=== PATIENT | female | born 2000 | race Caucasian/White ===

== ENCOUNTER 2020-08-21 15:24 | Outpatient (CLI) | payer SELFPAY ==
[2020-08-21] VITALS (7 sets, daily range): BP systolic 137–147; BP diastolic 81–87; PULSE 94–105; BMI 27.3
[2020-08-21 17:00] LABS: Basophils % 0.2 %; Eosinophils # 0.3 10^3/uL (0.0-0.8); Hematocrit 36.1 % (37.0-47.0); Hemoglobin 12.1 g/dL (11.5-15.3); Lymphocytes # 1.8 10^3/uL (0.8-4.8); Lymphocytes % 13.3 %; Mean Corpuscular HGB Conc 33.5 g/dL (30.0-36.0); Mean Corpuscular Hemoglobin 30.8 pg (28.0-34.0); Mean Corpuscular Volume 91.9 fL (81-99); Mean Platelet Volume 10.8 fL (7.4-10.4); Monocytes % 7.5 %; Neutrophils # 10.56 10^3/uL (1.8-7.7); Neutrophils % 76.3 %; Nucleated Red Blood Cells % 0 %; Platelet Count 234 10^3/cmm (130-400); Red Blood Count 3.93 10^6/uL (4.1-5.3); Red Cell Distribution Width 12.2 % (12.1-15.1); White Blood Count 13.8 10^3/uL (4.0-10.0)
[2020-08-21 17:17] LABS: Add Urine Microscopic? YES; Bilirubin Urine Neg (Negative); Blood Urine Neg (Negative); Glucose Urine UA Norm (Normal); Ketones Urine Negative (Negative); Leukocyte Esterase Urine Negative (Negative); Nitrate Urine Negative (Negative); Protein Urine Neg (Negative); Specific Gravity, Urine 1.015 (1.005-1.030); Urine Appearance SL Hazy (CLEAR); Urine Color Yellow (Yellow); Urobilinogen Urine Norm (Negative); pH Urine 6.5 (5-7)
[2020-08-21 17:18] LABS: Alanine Aminotransferase 11 U/L (0-33); Albumin Level 3.5 g/dL (3.5-5.2); Alkaline Phosphatase 142 IU/L (35-105); Amorphous Sediment Urine 1+ /hpf; Anion Gap 14.8 (5-19); Aspartate Amino Transferase 18 U/L (0-32); Bacteria Urine TRACE /hpf; Blood Urea Nitrogen 13 mg/dL (6-20); Calcium 9.7 mg/dL (8.5-10.5); Carbon Dioxide 23 mmol/L (22-29); Chloride 104 mmol/L (98-107); Coarse Granular Casts Urine 0-4 /lpf; Globulin 2.9 g/dL (1.3-4.6); Glomerular Filtration Rate 155.7 mL/min (90-130); Glucose 76 mg/dL (65-115); Mucus Urine TRACE /hpf; Osmolality Calculated 285 mOsm/kg (285-295); Potassium 3.8 mmol/L (3.5-5.1); RBC Urine 0-4 /hpf (0-2); Sodium 138 mmol/L (136-145); Total Bilirubin 0.3 mg/dL (0.15-1.2); Total Protein 6.4 g/dL (6.6-8.7); WBC Urine 0-4 /hpf (0-5)
[2020-08-21 17:19] LABS: Add Urine Culture? No
[2020-08-21 17:27] LABS: Urine Creatinine 64 mg/dL (28-217); Urine Protein Random 6 mg/dL
[2020-08-21 17:31] LABS: UPRO/UCREAT Ratio 0.09 mg/mg CR
== END 2020-08-21 17:57 | disposition home or self-care (01) ==
LOC: OPOB 15:31 → OBGYN 15:43
PROVIDERS: Visit Provider Family Medicine
DX: O16.9 Unspecified maternal hypertension, unspecified trimester (principal); Z3A.00 Weeks of gestation of pregnancy not specified
CPT/HCPCS: 36415; 59025; 80053; 81001; 82570; 84156; 84550; 85025; 99211